=== PATIENT | female | born 1940 | race Hispanic/Latino ===

== ENCOUNTER 2021-09-25 12:02 | Observation (INO) | payer OTHER ==
[~2021-09-25] VITALS: Ht 149.9 cm; Wt 63.5 kg
[2021-09-25 12:32] LABS: BASOPHILS # (AUTO) 0.1 (0.0-0.1); BASOPHILS % 0.8 % (0.0-1.0); EOSINOPHILS # (AUTO) 0.2 (0.0-0.4); EOSINOPHILS % 2.7 % (0.0-6.0); HEMATOCRIT 33.5 % (34.2-44.1); HEMOGLOBIN 10.6 g/dL (12.0-16.0); LYMPHOCYTES # (AUTO) 1.5 (1.0-3.2); LYMPHOCYTES % 19.1 % (18.0-39.1); MEAN CORPUSCULAR HEMOGLOBIN 31.5 pg (28-32); MEAN CORPUSCULAR HGB CONC 31.6 g/dL (31-35); MEAN CORPUSCULAR VOLUME 99.4 fL (81-99); MONOCYTES # (AUTO) 0.7 (0.2-0.8); NEUTROPHILS # (AUTO) 5.4 (2.1-6.9); NEUTROPHILS % 68.1 % (38.7-80.0); PLATELET COUNT 194 x10e3/uL (140-360); RED BLOOD COUNT 3.37 x10e6/uL (3.6-5.1); RED CELL DISTRIBUTION WIDTH 12.4 % (11.7-14.4)
[2021-09-25 12:43] LABS: INR 0.97; PARTIAL THROMBOPLASTIN TIME 29.6 seconds (23.8-35.5); PROTHROMBIN TIME 13.8 seconds (11.9-14.5)
[2021-09-25 12:51] LABS: ALBUMIN 3.6 g/dL (3.5-5.0); ALBUMIN/GLOBULIN RATIO 0.9 (0.8-2.0); ANION GAP 12.8 mmol/L (8-16); CALCIUM 9.5 mg/dL (8.4-10.2); CREATININE, SERUM 1.3 mg/dL (0.57-1.11); MAGNESIUM 1.9 MG/DL (1.3-2.1); POTASSIUM 3.8 mmol/L (3.5-5.1)
[2021-09-25 12:59] LABS: CREATINE KINASE MB 2.6 ng/mL (0-5.0)
[2021-09-25] MEDS ORDERED: SODIUM CHLORIDE 0.9% 500ML 500 ML IV SCH (13:00)
[2021-09-25] MEDS ORDERED: SODIUM CHLORIDE 0.9% 500ML 500 ML ONE (13:14)
[2021-09-25] MEDS ORDERED: ONDANSETRON HCL INJ 2MG/ML 2ML 2 MG/ML VIAL IV PRN (15:15)
[2021-09-25 15:31] LABS: CLARITY,URINE SL CLOUDY (CLEAR); COLOR,URINE YELLOW (YELLOW); KETONES,URINE NEGATIVE (NEGATIVE); LEUKOCYTE ESTERASE ,URINE TRACE (NEGATIVE); NITRITE,URINE POSITIVE (NEGATIVE); PROTEIN,URINE DIPSTICK 2+ (NEGATIVE); URINE UROBILINOGEN 0.2 mg/dL (0.2 - 1)
[2021-09-25 15:40] LABS: BACTERIA,URINE MANY /HPF; RBC,URINE 0-5 /HPF (0-5)
[2021-09-25] MEDS: FAMOTIDINE 20 MG/2 ML VIAL IV SCH ×2 (15:49→20:33)
[2021-09-25] MEDS: SODIUM CHLORIDE 0.9% 1000ML 1,000 ML IV SCH (15:50)
[2021-09-25 16:46] VITALS: BP 150/55
[2021-09-25 17:00] VITALS: BP 150/55
[2021-09-25] MEDS ORDERED: LIPITOR20 MG PO (17:43)
[2021-09-25] MEDS ORDERED: ARICEPT5 MG PO (17:43)
[2021-09-25] MEDS ORDERED: AMLODIPINE BESYL5 MG PO (17:43)
[2021-09-25] MEDS ORDERED: VITAMIN D31 GM PO (17:43)
[2021-09-25] MEDS ORDERED: METOPROLOL TART25 MG PO (17:43)
[2021-09-25] MEDS ORDERED: ASPIRIN81 MG PO (17:43)
[2021-09-25] MEDS ORDERED: DEPAKOTE ER250 MG PO (17:43)
[2021-09-25] MEDS ORDERED: MAGNESIUM400 MG PO (17:43)
[2021-09-25] MEDS ORDERED: SYNTHROID50 MCG PO (17:43)
[2021-09-25 19:03] LABS: CREATINE KINASE MB 3.2 ng/mL (0-5.0)
[2021-09-25 20:21] VITALS: BP 144/63
[2021-09-25 21:00] VITALS: BP 144/63
[2021-09-25] MEDS: CEFTRIAXONE 2 GM in SODIUM CHLORIDE 0.9% 100 ML IV SCH (21:15)
[2021-09-25] MEDS: ATORVASTATIN 20 MG TAB PO SCH (21:52)
[2021-09-25] MEDS: DIVALPROEX SODIUM 250 MG TAB...DR PO SCH (21:52)
[2021-09-25] MEDS: DONEPEZIL HCL 5 MG TAB PO SCH (21:52)
[2021-09-25 23:35] VITALS: BP 150/74
[2021-09-26 04:48] VITALS: BP 162/74
[2021-09-26 04:59] LABS: BASOPHILS % 0.5 % (0.0-1.0); EOSINOPHILS # (AUTO) 0.3 (0.0-0.4); EOSINOPHILS % 4.4 % (0.0-6.0); HEMOGLOBIN 10.1 g/dL (12.0-16.0); LYMPHOCYTES # (AUTO) 1.6 (1.0-3.2); LYMPHOCYTES % 26.4 % (18.0-39.1); MEAN CORPUSCULAR HEMOGLOBIN 31.9 pg (28-32); MEAN CORPUSCULAR HGB CONC 32.6 g/dL (31-35); MEAN CORPUSCULAR VOLUME 97.8 fL (81-99); MONOCYTES # (AUTO) 0.7 (0.2-0.8); MONOCYTES % 11.6 % (4.4-11.3); NEUTROPHILS # (AUTO) 3.5 (2.1-6.9); NEUTROPHILS % 56.8 % (38.7-80.0); PLATELET COUNT 166 x10e3/uL (140-360); RED BLOOD COUNT 3.17 x10e6/uL (3.6-5.1)
[2021-09-26 05:24] LABS: ALBUMIN 3.1 g/dL (3.5-5.0); ALBUMIN/GLOBULIN RATIO 0.9 (0.8-2.0); ANION GAP 11.5 mmol/L (8-16); CALCIUM 8.7 mg/dL (8.4-10.2); CHOL/HDL RATIO 3.1 (3.0-3.6); CREATININE, SERUM 0.85 mg/dL (0.57-1.11); POTASSIUM 3.5 mmol/L (3.5-5.1)
[2021-09-26] MEDS: LEVOTHYROXINE SODIUM 50 MCG TAB PO SCH (05:47)
[2021-09-26] MEDS: SODIUM CHLORIDE 0.9% 1000ML 1,000 ML IV SCH (05:47)
[2021-09-26 06:08] LABS: CREATINE KINASE MB 2.6 ng/mL (0-5.0)
[2021-09-26 07:53] VITALS: BP 152/65
[2021-09-26 08:00] VITALS: BP 152/65
[2021-09-26] MEDS: DIVALPROEX SODIUM 250 MG TAB...DR PO SCH ×2 (09:43→17:43)
[2021-09-26] MEDS: ASPIRIN 81 MG CHEW TAB PO SCH (09:43)
[2021-09-26] MEDS: METOPROLOL TARTRATE 25 MG TAB PO SCH ×2 (09:43→17:59)
[2021-09-26] MEDS: AMLODIPINE BESYLATE 5 MG TAB PO SCH (09:43)
[2021-09-26 12:24] VITALS: BP 154/69
[2021-09-26 15:15] VITALS: BP 137/65
[2021-09-26 20:28] VITALS: BP 151/69
[2021-09-26] MEDS: DONEPEZIL HCL 5 MG TAB PO SCH (21:41)
[2021-09-26] MEDS: ATORVASTATIN 20 MG TAB PO SCH (21:41)
[2021-09-26] MEDS ORDERED: SODIUM CHLORIDE 0.9% 250ML 250 ML ONE (22:05)
[2021-09-26] MEDS: CEFTRIAXONE 2 GM in SODIUM CHLORIDE 0.9% 100 ML IV SCH (22:11)
[2021-09-27 00:20] VITALS: BP 153/85
[2021-09-27 03:53] VITALS: BP 153/85
[2021-09-27 05:14] VITALS: BP 152/77
[2021-09-27] MEDS: LEVOTHYROXINE SODIUM 50 MCG TAB PO SCH (05:57)
[2021-09-27 08:24] VITALS: BP 153/77
[2021-09-27 09:00] VITALS: BP 153/77
[2021-09-27] MEDS ORDERED: LOSARTAN POTASSIUM 25 MG TAB PO SCH (09:00)
[2021-09-27] MEDS: METOPROLOL TARTRATE 25 MG TAB PO SCH (09:00)
[2021-09-27] MEDS ORDERED: CIPROFLOXACIN 250 MG TAB PO SCH (09:00)
[2021-09-27] MEDS: DIVALPROEX SODIUM 250 MG TAB...DR PO SCH (09:18)
[2021-09-27] MEDS: ASPIRIN 81 MG CHEW TAB PO SCH (09:18)
[2021-09-27] MEDS: AMLODIPINE BESYLATE 5 MG TAB PO SCH (09:19)
[2021-09-27] MEDS ORDERED: ONDANSETRON HCL 4 MG ORAL DISINTEGRATING TAB PO PRN (12:15)
[2021-09-27 12:48] VITALS: BP 140/68
== END 2021-09-27 13:24 | disposition home or self-care (01) ==
LOC: ER 12:06 → ERHOLD 15:14 → MED/SURG2 16:28
PROVIDERS: ADMIT Internal Medicine; ATTEND Internal Medicine
DX: R55 Syncope and collapse (principal); I10 Essential (primary) hypertension; E11.9 Type 2 diabetes mellitus without complications; F03.90 Unspecified dementia, unspecified severity, without behavioral disturbance, psychotic disturbance, mood disturbance, and anxiety; Z20.822 Contact with and (suspected) exposure to COVID-19; D63.8 Anemia in other chronic diseases classified elsewhere; N39.0 Urinary tract infection, site not specified; Z79.899 Other long term (current) drug therapy; B96.20 Unspecified Escherichia coli [E. coli] as the cause of diseases classified elsewhere; D64.9 Anemia, unspecified
CPT/HCPCS: 36415 ×2; 51700; 70450; 71045; 80053 ×2; 80061; 81001; 82550 ×2; 82553 ×2; 83735; 83880; 84484 ×2; 85025 ×2; 85610; 85730; 87086; 87186; 93005; 93880; 94799 ×2; 97110; 97139 ×4; 97161; 97530 ×2; 99251; 99284; G0378 ×3; J0696 ×2; J7030 ×2; J7040; J7050 ×3; U0002